=== PATIENT | male | born 1990 | race Caucasian/White ===

== ENCOUNTER → 2017-01-23 | Outpatient (CLI) | payer BC ==
--- NOTE | 2017-01-24 15:26 | XR ---
EXAMINATION TYPE: XR chest 2V DATE OF EXAM: 01/23/2017 11:53 AM COMPARISON: NONE INDICATION: Clubbing of nails TECHNIQUE: Frontal and lateral views of the chest are obtained. FINDINGS: The heart size is normal. The pulmonary vasculature is normal. The lungs are clear. IMPRESSION: 1. No acute pulmonary process.
== END ==
LOC: RADXRYALE 09:48
PROVIDERS: ATTEND Physician Assistant Medical
DX: R68.3 Clubbing of fingers (principal)
CPT/HCPCS: 71020

== ENCOUNTER 2019-04-06 01:29 | Emergency (ER) | payer BC, OTHER ==
[2019-04-06 01:41] VITALS: BP 143/90; PULSE 80; RESP 19; TEMP 98.4
--- NOTE | 2019-04-06 01:59 | ED ---
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 The individual is known to be hepatitis C positive. Patient does have superficial abrasions to the bilateral forearms that were 2 to 3 days old. Patient states he did have the individuals blood on his arms over the areas that were abraded. Patient believes he is up-to-date on his hepatitis B vaccine. Denies any other injuries or concerns. - Related Data Previous Rx's Medication Instructions Recorded Amoxicillin/Potassium Clav 1 tab PO Q12HR #20 tab 01/12/16 [Augmentin 875-125 Tablet] Allergies Allergy/AdvReac Type Severity Reaction Status Date / Time No Known Allergies Allergy Verified 01/12/16 01:59 Review of Systems ROS Statement: Those systems with pertinent positive or pertinent negative responses have been documented in the HPI. ROS Other: All systems not noted in ROS Statement are negative. Past Medical History Past Medical History: No Reported History History of Any Multi-Drug Resistant Organisms: None Reported Past Surgical History: No Surgical Hx Reported Past Psychological History: No Psychological Hx Reported Smoking Status: Never smoker Past Alcohol Use History: Rare Past Drug Use History: None Reported General Exam Limitations: no limitations General appearance: alert, in no apparent distress, other (Physical well- developed, well-nourished adult male patient in no acute distress. Vital signs upon presentation are temperature 98.4F, pulse 80, respirations 19, blood pressure 143/90, pulse ox 100% on room air.) Respiratory exam: Present: normal lung sounds bilaterally. Absent: respiratory distress, wheezes, rales, rhonchi, stridor Cardiovascular Exam: Present: regular rate, normal rhythm, normal heart sounds. Absent: systolic murmur, diastolic murmur, rubs, gallop, clicks Extremities exam: Present: full ROM, normal capillary refill, other (Multiple superficial and small abrasions noted to the bilateral forearms over the ulnar surface.). Absent: normal inspection, tenderness, pedal edema, joint swelling, calf tenderness Neurological exam: Present: alert, oriented X3, CN II-XII intact Psychiatric exam: Present: normal affect, normal mood Skin exam: Present: warm, dry, intact, normal color. 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 Patient's labs were drawn for postexposure testing. I did discuss risk of exposure with the patient. We did discuss that there is no known postexposure prophylaxis for hepatitis C. The source is being tested for HIV and other blood borne infections as well. Source testing was negative for HIV. Patient be discharged to follow-up with employee health services for further evaluation and postexposure testing. He is instructed to follow-up with his primary care physician as soon as possible. Return parameters discussed in detail. He verbalizes understanding and agrees with this plan. Disposition Clinical Impression: Exposure to blood or body fluid Disposition: HOME SELF-CARE Condition: Good Instructions (If sedation given, give patient instructions): Body Substance Exposure (ED) Additional Instructions: Follow-up for outpatient lab testing, follow-up with employee health services at the number listed on the [facility] form. Return to the emergency department immediately for any new, worsening, or concerning symptoms. Is patient prescribed a controlled substance at d/c from ED?: No Referrals: Kei Velázquez DO [Primary Care Provider] - 1-2 days Time of Disposition: 01:59
[2019-04-06 17:54] LABS: Hepatitis C IgG Antibody Non-Reactive (Non-Reactive)
[2019-04-06 18:26] LABS: HIV 1 AB Non-Reactive (Non-Reactive); HIV AB P24 Non-Reactive (Non-Reactive); HIV P24 AG Non-Reactive (Non-Reactive)
== END 2019-04-06 02:10 | disposition home or self-care (01) ==
LOC: EC 01:29
DX: Z77.21 Contact with and (suspected) exposure to potentially hazardous body fluids (principal); S50.812A Abrasion of left forearm, initial encounter; S50.811A Abrasion of right forearm, initial encounter
CPT/HCPCS: 36415; 86706; 86803; 87340; 87390; 99282

== ENCOUNTER → 2021-03-29 | Outpatient (CLI) | payer BC ==
--- NOTE | 2021-03-29 14:37 | XR ---
EXAMINATION TYPE: XR ankle complete RT DATE OF EXAM: 03/29/2021 COMPARISON: None HISTORY: Ankle pain TECHNIQUE: 3 view right ankle FINDINGS: Ankle mortise is intact. Soft tissues are normal there is no acute fracture or dislocation is evident. Follow up exams can be performed 7-10 days from acute trauma for continued pain. IMPRESSION: 1. Normal three-view right ankle
== END | disposition home or self-care (01) ==
LOC: RADXRYALE 14:04
PROVIDERS: ATTEND Physician Assistant Medical
DX: M25.571 Pain in right ankle and joints of right foot (principal)

== ENCOUNTER → 2023-01-30 | Outpatient (CLI) | payer BC ==
--- NOTE | 2023-01-30 13:53 | US ---
EXAMINATION TYPE: US abdomen limited DATE OF EXAM: 01/30/2023 COMPARISON: NONE CLINICAL INDICATION: Male, 32 years old with history of K40.90UNIL INGUINAL HERNIA, R30.9PAINFUL MICT URITI; Pain/ Lump x 1 week, cold 2 weeks prior TECHNIQUE: Multiple sonographic images of the left inguinal region are obtained. Imaging performed wi thout and with Valsalva. FINDINGS: ADMINISTRATIVE LIBRARY ASSISTANT NOTES: Area of concern, palpable left inguinal region was scanned, no hernia noted. There is a focally dilated vein along the expected spermatic cord, increased in size with valsalva Two prominent but nonenlarged lymph nodes are also noted in area of concern 1.) 1.9x0.7x1.4cm 2.)0.9x0.6x0.9cm IMPRESSION: Targeted scanning along the left inguinal region of palpable abnormality. There is a short segment [place] along the left inguinal canal. Additionally, 2 prominent but nonenlarged lymph nodes are present in the left inguinal region. No discrete inguinal hernia identified.
== END | disposition home or self-care (01) ==
LOC: RADUSWWP 09:43
PROVIDERS: ATTEND Family Medicine
DX: K40.90 Unilateral inguinal hernia, without obstruction or gangrene, not specified as recurrent (principal); R30.9 Painful micturition, unspecified
CPT/HCPCS: 76705

== ENCOUNTER → 2023-09-30 | Outpatient (CLI) | payer BC ==
--- NOTE | 2023-09-30 15:01 | XR ---
EXAMINATION TYPE: XR cervical spine comp DATE OF EXAM: 09/30/2023 CLINICAL HISTORY: pain COMPARISON: NONE TECHNIQUE: Frontal, lateral, oblique, swimmers, and open mouth view of the cervical spine are obtaine d. FINDINGS: The cervical spine is visualized in its entirety from C1 thru the top of T1 level. It is s atisfactory in alignment without evidence of acute fracture or dislocation. The pre-vertebral soft t issue appears within normal limits. Disc spaces are well preserved. The C1-C2 articulation is unremar kable on the open mouth view. The oblique images are within normal limits. IMPRESSION: No acute fracture or dislocation is seen in the cervical spine.ICD 10 NO FRACTURE, INITI AL EVALUATION
== END | disposition home or self-care (01) ==
LOC: RADXRYALE 14:47
PROVIDERS: ATTEND Physician Assistant Medical
DX: M54.2 Cervicalgia (principal)
CPT/HCPCS: 72050

== ENCOUNTER → 2024-03-25 | Outpatient (CLI) | payer BC ==
[2024-03-25 19:41] LABS: T4, Free (Free Thyroxine) 1.24 ng/dL (0.80-1.80)
== END | disposition home or self-care (01) ==
LOC: LABWHC1 12:26
PROVIDERS: ATTEND Family Medicine
DX: F41.1 Generalized anxiety disorder (principal)
CPT/HCPCS: 36415; 82607; 84402; 84403; 84439; 84443; 86376